=== PATIENT | female | born 1980 | race Two or more races ===

== ENCOUNTER → 2016-09-01 | Emergency (ER) | payer MEDICAID ==
[~2016-09-01] VITALS: Ht 157.5 cm; Wt 113.4 kg
[~2016-09-01] MED LIST: ACETAMINOPHEN 325 MG TAB PO ONE; CEFTRIAXONE SODIUM 2 GM in D5W 5% 50 ML IV ONE; KETOROLAC TROMETH 30 MG/ML 1ML VIAL IV ONE; ONDANSETRON HCL 4 MG/2 ML VIAL IV ONE; SODIUM CHLORIDE 0.9% 1,000 ML IV ONE; cefTRIAXone 1GM/50ML D5W 50 ML IV ONE
[2016-09-01 22:11] LABS: Basophils # (auto) 0 uL; Eosinophils # (auto) 0.1 uL; Eosinophils % (auto) 0.6 % (0.0-7.0); Hematocrit 30.7 % (36.0-46.0); Hemoglobin 10.2 g/dL (12.2-16.2); Lymphocytes % (auto) 10.2 % (10.0-50.0); Mean Corpuscular Hemoglobin 29.2 pg (28.0-32.0); Mean Corpuscular Hgb Conc. 33.3 g/dL (32.0-36.0); Mean Corpuscular Volume 87.7 fL (80.0-100.0); Mean Platelet Volume 9.5 fL (7.4-10.4); Monocytes # (auto) 0.9 uL; Monocytes % (auto) 9.7 % (0.0-12.0); Neutrophils # (auto) 7.8 uL; Neutrophils % (auto) 79.5 % (37.0-80.0); Platelet Count (auto) 231 10^3/uL (140-450); Red Cell Distribution Width 14.8 % (11.6-16.0); SUSPECT VIEW TRANSMISSION; White Blood Cell 9.8 10^3/uL (4.4-10.8)
[2016-09-01 22:33] LABS: Albumin 2.6 g/dL (3.4-5.0); BUN/Creatinine Ratio 6.9; Bilirubin, Total 0.8 mg/dL (0.2-1.0); Magnesium 2.3 mg/dL (1.6-2.6); Potassium 3.2 mmol/L (3.5-5.1); Total Protein 7.1 g/dL (6.4-8.2)
[2016-09-01 23:20] LABS: Urine Bilirubin Negative (Negative); Urine Color Yellow (Yellow); Urine Glucose Normal (Normal)
[2016-09-01 23:21] LABS: Urine Blood Trace /uL (Negative); Urine Ketone 2+ (Negative)
[2016-09-01 23:22] VITALS: BP 118/58
[2016-09-01 23:22] LABS: Urine Nitrite Negative (Negative); Urine RBC 2 /hpf (0 - 4); Urine Squamous Epithelial Cell FEW /hpf (<5)
[2016-09-01 23:23] LABS: Urine Granular Cast FEW /lpf (0); Urine Hyaline Cast FEW /lpf (0 - 2)
== END | disposition home or self-care (01) ==
LOC: ER 20:28
DX: R50.9 Fever, unspecified (principal); J45.909 Unspecified asthma, uncomplicated; F17.210 Nicotine dependence, cigarettes, uncomplicated; R10.9 Unspecified abdominal pain; F15.10 Other stimulant abuse, uncomplicated
CPT/HCPCS: 36415; 71010; 80053; 81001; 81025; 83605; 83735; 85025; 87040; 93005; 94761; 96361; 96365; 96375; 99285; J2405; J7030; J0696; J7060

== ENCOUNTER 2018-04-11 21:13 | Emergency (ER) | payer MEDICAID ==
[~2018-04-11] VITALS: Ht 165.1 cm; Wt 136.1 kg
[2018-04-11 21:18] VITALS: BP 130/83
[2018-04-11] MEDS ORDERED: ALBUTEROL SULF 2.5 MG/0.5ML(0.5%) NEB SOLN NEB ONE (23:00)
[2018-04-11] MEDS ORDERED: IPRATROPIUM BROM 0.5 MG/2.5ML INH SOL NEB ONE (23:00)
[2018-04-11] MEDS ORDERED: methylPREDNISolone SOD SUCC 125 MG/2 ML VL IM ONE (23:00)
== END 2018-04-11 23:19 | disposition home or self-care (01) ==
LOC: ER 21:13
DX: J20.8 Acute bronchitis due to other specified organisms (principal); J02.9 Acute pharyngitis, unspecified; J45.909 Unspecified asthma, uncomplicated; F17.210 Nicotine dependence, cigarettes, uncomplicated; F15.10 Other stimulant abuse, uncomplicated
CPT/HCPCS: 71046; 94640; 96372; 99283; J2930; J7611; J7644

== ENCOUNTER 2018-09-18 20:04 | Emergency (ER) | payer MEDICAID ==
[~2018-09-18] VITALS: Ht 165.1 cm; Wt 127.0 kg
[2018-09-18] MEDS ORDERED: ONDANSETRON HCL 4 MG/2 ML VIAL IV ONE (20:45)
[2018-09-18] MEDS ORDERED: HYDROmorphone HCL 2 MG/ML VL IV ONE (20:45)
[2018-09-18 21:13] VITALS: BP 114/67
== END 2018-09-18 22:21 | disposition home or self-care (01) ==
LOC: EDBD 20:04 → ER 20:08
DX: S82.61XA Displaced fracture of lateral malleolus of right fibula, initial encounter for closed fracture (principal); J45.909 Unspecified asthma, uncomplicated; F17.210 Nicotine dependence, cigarettes, uncomplicated; F15.90 Other stimulant use, unspecified, uncomplicated; Z88.0 Allergy status to penicillin; W01.0XXA Fall on same level from slipping, tripping and stumbling without subsequent striking against object, initial encounter; Y93.89 Activity, other specified; Y99.8 Other external cause status; Y92.89 Other specified places as the place of occurrence of the external cause
CPT/HCPCS: 29515; 73600; 96374; 96375; 99283; J1170; J2405

== ENCOUNTER 2018-10-05 08:13 | Emergency (ER) | payer MEDICAID ==
[~2018-10-05] VITALS: Ht 170.2 cm; Wt 81.6 kg
[2018-10-05 08:22] VITALS: BP 130/80
== END 2018-10-05 09:46 | disposition home or self-care (01) ==
LOC: EDBD 08:13 → ER 08:15
DX: S82.831D Other fracture of upper and lower end of right fibula, subsequent encounter for closed fracture with routine healing (principal); F17.210 Nicotine dependence, cigarettes, uncomplicated; F15.90 Other stimulant use, unspecified, uncomplicated; X58.XXXD Exposure to other specified factors, subsequent encounter
CPT/HCPCS: 29515